=== PATIENT | female | born 1955 | race African-American/Black ===

== ENCOUNTER 2017-05-09 19:37 | Emergency (ER) | payer SELFPAY ==
[~2017-05-09] VITALS: Ht 172.7 cm; Wt 45.5 kg
[~2017-05-09 19:37] MED LIST: ASPI1TAB69 PO; BUPR100CR PO; CYCL5TAB PO; LORA-392 PO; MEGE40TA PO; NITR1SUB3 SL; PERC5TAB12 PO; TAMS5CAP PO; TRAM50TA PO; VARE1PAK3 PO; VENTAER INH
[2017-05-09 19:39] VITALS: BP 207/108; PULSE 95; RESP 16; TEMP 98.4; O2SAT 98
[2017-05-09] MEDS ORDERED: ASPI81CH CHEW (21:13)
[2017-05-09] MEDS ORDERED: LISI10TA3 PO (21:14)
[2017-05-09] MEDS ORDERED: AMLO2.5T PO (21:14)
--- NOTE | 2017-05-09 21:14 | PD ---
HPI Chief Complaint: Flank/Kidney Pain Time Seen by Provider: 21:12 Travel History International Travel<30 days: No Contact w/Intl Traveler<30days: No Traveled to known affect area: No History of Present Illness HPI The patient is a 61 year old female who presents to the [facility] emergency department with a history of kidney stones that she reports have been causing her right flank pain over the last few months that is gradually gotten worse with time. She reports that she has been on tramadol as well as Percocet for the pain, however this seems to cause nausea even if she takes it with something on her stomach. The patient reports that she has seen a urologist regarding this. She reports that she was told that they wanted to do surgery related to a kidney stone on the left, however pain is more prominent on the right. She cannot recall the name of her urologist or her primary care physician. She reports that she does have urinary frequency and urinary urgency. She additionally reports that she's had a fever over the last 2 days with a MAXIMUM TEMPERATURE of 101. On review of systems otherwise she also reports having chest congestion and a cough that has been productive of a clear to white sputum. She reports that the congestion has been getting worse over the last few days. The patient reports that she does have a history of COPD. She reports that she does smoke a half a pack of cigarettes per day. She reports that she has suprapubic pressure on her bladder gets full. Otherwise on review of systems, the patient denies any neck pain, chest pain, shortness of breath, vomiting, diarrhea, or neurologic symptoms. [facility] Past Medical History Narrative Medical The patient's past medical history is significant for hypertension, COPD, tobacco abuse, acid reflux, renal calculi, shingles, herpes. Hx Anticoagulant Therapy: Yes (ASA) Asthma: No Autoimmune Disease: No Anxiety: Yes Depression: Yes Heart Rhythm Problems: No Cancer: No Cardiac Catheterization: No Cardiovascular Problems: Yes (HTN) High Cholesterol: No Chest Pain: Yes (SEEN SEVERAL TIMES FOR REOCCURING CHEST PAIN) Congestive Heart Failure: No COPD: Yes Cerebrovascular Accident: No Diabetes: No Diminished Hearing: No Gastrointestinal Disorders: Yes GERD: Yes Genitourinary: Yes Hiatal Hernia: No Heparin Induced Thrombocytopen: No Hypertension: Yes Immune Disorder: No Implanted Vascular Access Dvce: No Kidney Stones: Yes Musculoskeletal: Yes Neurologic: Yes Psychiatric: Yes Respiratory: Yes (COPD) Immunizations Current: Yes Sleep Apnea: Yes (no cpap) Thyroid Disease: No Ulcer: No Tubal Ligation: Yes Past Surgical History Narrative Surgical The patient's past surgical history is significant for lithotripsy, partial hysterectomy related to a fibroid, left tib-fib repair with chronic left leg pain. Coronary Artery Bypass Graft: No Gynecologic Surgery: Yes (partial hysterectomy) Hysterectomy: Yes Pacemaker: No Other Surgery: Yes (LITHOTRIPSY) Family History Family Myocardial Infarction: No Social History Alcohol Use: No Tobacco Use: Yes (15 cigs a day ) Substance Use: No Allergies-Medications (Allergen,Severity, Reaction): Coded Allergies: Sulfa (Sulfonamide Antibiotics) (Unverified Allergy, Severe, SWELLING, HIVES, 05/09/17) Reported Meds & Prescriptions Reported Meds & Active Scripts Active Percocet (Oxycodone-Acetaminophen) 5-325 mg Tab 1-2 Tab PO Q6H PRN Tramadol (Tramadol HCl) 50 Mg Tab 50 Mg PO Q6H PRN Flomax (Tamsulosin HCl) 0.4 Mg Cap 0.4 Mg PO HS Wellbutrin SR 12 HR (Bupropion HCl) 100 Mg Tab 100 Mg PO Q12HR Nitroglycerin SL (Nitroglycerin) 0.4 Mg Subl 0.4 Mg SL DIRECTED PRN ONE TABLET UNDER THE TONGUE NEEDED FOR CHEST PAIN, MAY REPEAT EVERY FIVE MINUTES FOR A TOTAL OF 3 DOSES OR CALL 911 IF NO RELIEF Ativan (Lorazepam) 0.5 Mg Tab 0.5 Mg PO BID PRN Reported Amlodipine (Amlodipine Besylate) Unknown Strength Tab Unknown Dose PO DAILY Lisinopril 10 Mg Tab 10 Mg PO BID Aspirin 81 Mg Chew 81 Mg CHEW DAILY Ventolin Hfa 18 GM Inh (Albuterol Sulfate) 90 Mcg/Act Aer 1 Puff INH Q4H PRN Megestrol (Megestrol Acetate) 40 Mg Tab 40 Mg PO QID Flexeril (Cyclobenzaprine HCl) 5 Mg Tab 5 Mg PO DAILY Review of Systems Except as stated in HPI: all other systems reviewed are Neg General / Constitutional: Positive: Fever, No: Chills Eyes: No: Visual changes HENT: Positive: Congestion, No: Headaches Cardiovascular: No: Chest Pain or Discomfort, Dyspnea on exertion Respiratory: Positive: Cough, No: Shortness of Breath Gastrointestinal: Positive: Nausea, Abdominal Pain (suprapubic pressure), No: Vomiting, Diarrhea, Hematemesis, Hematochezia, Changes in Bowel Habits, Indigestion, Loss of Appetite Genitourinary: Positive: Urgency, Frequency, Flank Pain (right flank), No: Dysuria Musculoskeletal: Positive: Myalgias, Arthralgias, No: Pain Skin: No Rash Neurologic: No: Weakness, Focal Abnormalities, Change in Mentation, Slurred Speech, Sensory Disturbance Psychiatric: No: Depression Endocrine: No: Polydipsia Hematologic/Lymphatic: No: Easy Bruising Physical Exam Narrative General: The patient is a well-developed well-nourished female in no acute distress. Head and Neck exam: Head is normocephalic atraumatic. Eyes: EOMI, pupils are equal round and reactive to light. Nose: Midline septum with pink mucous membranes Mouth: Dentition unremarkable. Moist mucus membranes. Posterior oropharynx is not erythematous. No tonsillar hypertrophy. Uvula midline. Airway patent. Neck: No palpable lymphadenopathy. No nuchal rigidity. No thyromegaly. Cardiovascular: Regular rate and rhythm without murmurs, gallops, or rubs. No pulse deficit to the extremities simultaneously auscultation and palpation of her radial artery. Lungs: Clear to auscultation bilaterally. No wheezes, rhonchi, or rales. Abdomen: Soft, with reported suprapubic discomfort on palpation, no other tenderness on palpation of the other quadrants of the abdomen. No guarding, rebound, or rigidity. Normal bowel sounds are audible. No tenderness on palpation of McBurney's point. Extremities: No clubbing, cyanosis, or edema. 2+ pulses in all 4 extremities. No calf tenderness on palpation. Back: No spinous process tenderness to palpation. Right-sided CVA tenderness on palpation. Neurologic Exam: Grossly nonfocal. Skin Exam: No rash noted. Intact skin that is warm and dry. Data Data Last Documented VS Vital Signs Date Time Temp Pulse Resp B/P (MAP) Pulse Ox O2 Delivery O2 Flow Rate FiO2 05/09/17 21:26 95 Room Air 05/09/17 19:39 98.4 95 16 Orders Orders Urinalysis - C+S If Indicated (05/09/17 20:53) Electrocardiogram (05/09/17 21:18) Complete Blood Count With Diff (05/09/17 21:18) Comprehensive Metabolic Panel (05/09/17 21:18) Prothrombin Time / Inr (Pt) (05/09/17 21:18) Act Partial Throm Time (Ptt) (05/09/17 21:18) Lipase (05/09/17 21:18) Magnesium (Mg) (05/09/17 21:18) Iv Access Insert/Monitor (05/09/17 21:18) Ecg Monitoring (05/09/17 21:18) Oximetry (05/09/17 21:18) Urine Culture (05/09/17 20:53) Chest, Single Ap (05/09/17 ) Ct Abd/Pel W/O Iv Contrast (05/09/17 22:20) Ketorolac Inj (Toradol Inj) (05/09/17 23:45) Ondansetron Inj (Zofran Inj) (05/09/17 23:45) Sodium Chlorid 0.9% 500 Ml Inj (Ns 500 M (05/09/17 23:45) Labs Laboratory Tests Test 05/09/17 20:53 05/09/17 21:34 Urine Color YELLOW Urine Turbidity HAZY Urine pH 5.5 Urine Specific [place] 1.027 Urine Protein 30 mg/dL Urine Glucose (UA) NEG mg/dL Urine Ketones NEG mg/dL Urine Occult Blood MOD Urine Nitrite NEG Urine Bilirubin NEG Urine Urobilinogen 2.0 MG/DL Urine Leukocyte Esterase SMALL Urine RBC /hpf Urine WBC 30 /hpf Urine Squamous Epithelial Cells 4 /hpf Urine Transitional Epithelial Cells 1 /hpf Urine Calcium Oxalate Crystals MOD /hpf Urine Amorphous Sediment RARE Urine Mucus MANY /lpf Microscopic Urinalysis Comment CULTURE INDICATED White Blood Count 7.3 TH/MM3 Red Blood Count 4.65 MIL/MM3 Hemoglobin 12.7 GM/DL Hematocrit 39.3 % Mean Corpuscular Volume 84.5 FL Mean Corpuscular Hemoglobin 27.4 PG Mean Corpuscular Hemoglobin Concent 32.4 % Red Cell Distribution Width 13.5 % Platelet Count 146 TH/MM3 Mean Platelet Volume 9.0 FL Neutrophils (%) (Auto) 60.9 % Lymphocytes (%) (Auto) 30.3 % Monocytes (%) (Auto) 6.5 % Eosinophils (%) (Auto) 1.9 % Basophils (%) (Auto) 0.4 % Neutrophils # (Auto) 4.5 TH/MM3 Lymphocytes # (Auto) 2.2 TH/MM3 Monocytes # (Auto) 0.5 TH/MM3 Eosinophils # (Auto) 0.1 TH/MM3 Basophils # (Auto) 0.0 TH/MM3 CBC Comment DIFF FINAL Differential Comment Prothrombin Time 10.0 SEC Prothromb Time International Ratio 0.9 RATIO Activated Partial Thromboplast Time 25.6 SEC Blood Urea Nitrogen 23 MG/DL Creatinine 1.07 MG/DL Random Glucose 83 MG/DL Total Protein 7.0 GM/DL Albumin 3.5 GM/DL Calcium Level 8.8 MG/DL Magnesium Level 2.0 MG/DL Alkaline Phosphatase 77 U/L Aspartate Amino Transf (AST/SGOT) 22 U/L Alanine Aminotransferase (ALT/SGPT) 23 U/L Total Bilirubin 0.2 MG/DL Sodium Level 142 MEQ/L Potassium Level 3.9 MEQ/L Chloride Level 108 MEQ/L Carbon Dioxide Level 27.1 MEQ/L Anion Gap 7 MEQ/L Estimat Glomerular Filtration Rate 64 ML/MIN Lipase 153 U/L [facility] Medical Decision Making Medical Screen Exam Complete: Yes Emergency Medical Condition: Yes Medical Record Reviewed: Yes Interpretation(s) Last Impressions Abdomen/Pelvis CT 05/09/17 2220 Signed Impressions: Service Date/Time: Tuesday, May 09, 2017 22:41 - CONCLUSION: 1. Numerous nonobstructing right renal calculi as above. 2. 8mm calculus in distal left ureter chronic appearing left-sided hydronephrosis. 3. Multiple small hepatic cysts. No bowel obstruction. Mild ileus. Selvin Rodriguez MD Chest X-Ray 05/09/17 0000 Signed Impressions: Service Date/Time: Tuesday, May 09, 2017 22:15 - CONCLUSION: No evidence of acute cardiopulmonary disease. Azam Fajardo MD Differential Diagnosis Renal calculi, versus renal colic, versus pyelonephritis, versus lower lobe pneumonia, versus bronchitis, versus COPD exacerbation Narrative Course During the course of the patients emergency department visit, the patients history, examination, and differential diagnosis were reviewed with the patient. The patient had IV access obtained and blood work sent for analysis. The patient was placed on a oil burner with oximetry and blood pressure monitoring. An ECG was done on arrival. The patient's ECG shows a sinus rhythm with a short NM interval, heart rate of 76, QRS duration is 74 ms, QTC 412 ms, LVH criteria are met, no acute ST segment elevation, T waves are inverted in V1, V2. The patient was initially provided Toradol 15 mg IV, normal saline a 500 mL bolus, Zofran 4 mg IV. The patient was given Rocephin 1 g IV to cover for bronchitis, versus UTI. The patients laboratory studies were reviewed and remarkable for white count 7.3 , hemoglobin 12.7, platelets 146 with a normal differential, CMP is remarkable for chloride of 108, BUN 23, creatinine 1.07, lipase 153, PT PTT within normal limits, urinalysis showed moderate occult blood, small leukocyte esterase, innumerable rbc's, 30 wbc's, 4 squamous epithelial cells, moderate calcium oxalate crystals, many mucus, culture indicated. Radiology studies were reviewed and remarkable for a chest x-ray that shows numerous nonobstructing right renal calculi, 8 mm calculus in the distal left ureter chronic appearing left sided hydronephrosis, multiple small hepatic cysts. No bowel obstruction. Mild ileus. Chest x-ray shows no evidence of acute cardiopulmonary disease. The patient will be discharged home to follow-up with the urologist. The patient is given the name of the urologist on-call, with a mandatory follow-up through case management in our system and she reports that she is uninsured. The patient was given a prescription for Ceftin and Phenergan for nausea on her pain medication. The patient is instructed to take her usual pain medication as needed for discomfort. The patient is resting comfortably and feels better, is alert and in no distress. The patients results and examination findings were discussed with the patient. The repeat examination is unremarkable and benign. The history, exam, diagnostic testing, and current condition do not suggest any significant pathology to warrant further testing, continued ED treatment, admission, or surgical evaluation at this point. The vital signs have been stable. The patient does not have uncontrollable pain, intractable vomiting, or other significant symptoms. The patient's condition is stable and appropriate for discharge. The patient will pursue further outpatient evaluation with a primary care physician or other designated or consulting physician as indicated in the discharge instructions. The patient expressed understanding and was agreeable with this plan. Diagnosis Primary Impression: Urolithiasis Qualified Codes: N20.0 - Calculus of kidney Additional Impressions: Bronchitis History of COPD Left ureteral stone Referrals: Avel Ortega MD Primary Care Physician Patient Instructions: Acute Bronchitis (ED), COPD (Chronic Obstructive Pulmonary Disease) (ED), General Instructions, Kidney Stones (ED) Additional Instructions: Continue your usual pain management regimen. Follow-up with the urologist as soon as possible. Continue rescue inhaler use as previously recommended by her primary care physician. Quit smoking. Med/Other Pt SpecificInfo: Prescription(s) given Scripts Promethazine (Phenergan) 25 Mg Tablet 12.5 MG PO Q6H Y for NAUSEA OR VOMITING, #7 TAB 0 Refills Prov: Diana Centeno MD 05/09/17 Cefuroxime (Cefuroxime) 500 Mg Tab 500 MG PO BID for Infection for 7 Days, TAB 0 Refills Prov: Diana Centeno MD 05/09/17 Disposition: 01 DISCHARGE HOME Condition: Stable Diana Centeno MD May 09, 2017 21:13
[2017-05-09 21:26] VITALS: O2SAT 95
[2017-05-09 21:27] LABS: BLOOD, URINE MOD (NEG); CALCIUM OXALATE CRYSTALS,URINE MOD /hpf; COMMENT (UR) CULTURE INDICATED; CULTURE IF INDICATED CULTURE INDICATED; GLUCOSE,URINE NEG (NEG); KETONE, URINE NEG (NEG); MUCUS URINE MANY /lpf (OCC); NITRITE,URINE NEG (NEG); PH, URINE 5.5 (5.0-8.5); SQUAMOUS EPITHELIAL CELL URINE 4 /hpf (0-5); TRANSITIONAL EPI CELLS, URINE 1 /hpf; URINE COLOR YELLOW (YELLW/STRAW)
[2017-05-09 22:13] LABS: APTT (PATIENT) 25.6 SEC (24.3-30.1); AUTOMATED NEUTROPHIL # 4.5 TH/MM3 (1.8-7.7); BASOPHIL % 0.4 % (0.0-2.0); EOSINOPHIL # 0.1 TH/MM3 (0-0.4); EOSINOPHIL % 1.9 % (0.0-4.0); HEMATOCRIT 39.3 % (35.0-46.0); HEMO FLAGS DIFF FINAL; INTERNATIONAL NORMALIZED RATIO 0.9 RATIO; LYMPH % 30.3 % (9.0-44.0); LYMPHOCYTE # 2.2 TH/MM3 (1.0-4.8); MEAN CELL VOLUME 84.5 FL (80.0-100.0); MEAN CORPUSCULAR HEMOGLOBIN 27.4 PG (27.0-34.0); MEAN CORPUSCULAR HGB CONC 32.4 % (32.0-36.0); MONO % 6.5 % (0.0-8.0); NEUT % 60.9 % (16.0-70.0); PLATELET COUNT 146 TH/MM3 (150-450); RED BLOOD COUNT 4.65 MIL/MM3 (4.00-5.30); RED CELL DISTRIBUTION WIDTH 13.5 % (11.6-17.2); WHITE BLOOD COUNT 7.3 TH/MM3 (4.0-11.0)
--- NOTE | 2017-05-09 22:37 | RADRPT ---
EXAM DATE/TIME: 05/09/2017 22:15 [facility] COMPARISON: CHEST SINGLE AP, December 23, 2015, 20:35. INDICATIONS : Cough and chronic chest pain. MEDICAL HISTORY : Hypertension. Chronic obstructive pulmonary disease. SURGICAL HISTORY : None. ENCOUNTER: Initial ACUITY: 7 - 11 months PAIN SCORE: 6/10 LOCATION: Left chest FINDINGS: A single view of the chest demonstrates the lungs to be symmetrically aerated without evidence of mas s, infiltrate or effusion. The cardiomediastinal contours are unremarkable. Osseous structures are intact. CONCLUSION: No evidence of acute cardiopulmonary disease. Azam Fajardo MD on May 09, 2017 at 22:36 Board Certified Radiologist. This report was verified electronically.
[2017-05-09 22:43] LABS: ALT (GPT) 23 U/L (10-53)
[2017-05-09 22:44] LABS: ANION GAP 7 MEQ/L (5-15); AST (GOT) 22 U/L (15-37); BICARBONATE 27.1 MEQ/L (21.0-32.0); BLOOD UREA NITROGEN 23 MG/DL (7-18); CHLORIDE 108 MEQ/L (98-107); GLOMERULAR FILTRATION RATE 64 ML/MIN (>89); POTASSIUM 3.9 MEQ/L (3.5-5.1); SODIUM (NA) 142 MEQ/L (136-145)
[2017-05-09 22:45] LABS: ALKALINE PHOSPHATASE 77 U/L (45-117); TOTAL BILIRUBIN ADULT 0.2 MG/DL (0.2-1.0)
--- NOTE | 2017-05-09 23:14 | RADRPT ---
EXAM DATE/TIME: 05/09/2017 22:41 [facility] COMPARISON: No previous studies available for comparison. INDICATIONS : Right flank pain. ORAL CONTRAST: No oral contrast ingested. RADIATION DOSE: 13.68 CTDIvol (mGy) MEDICAL HISTORY : Hypertension. Chronic obstructive pulmonary disease. Renal calculi. SURGICAL HISTORY : Tubal ligation. Hysterectomy. ENCOUNTER: Initial ACUITY: 1 day PAIN SCALE: 5/10 LOCATION: Right flank TECHNIQUE: Volumetric scanning of the abdomen and pelvis was performed. Using automated exposure control and ad justment of the mA and/or kV according to patient size, radiation dose was kept as low as reasonably achievable to obtain optimal diagnostic quality images. DICOM format image data is available electro nically for review and comparison. FINDINGS: Lung bases are clear. Multiple small hepatic cysts. Spleen unremarkable. There are numerous calculi i n the right kidney predominantly in the lower pole ranging in size from about 5 mm x 10 mm in the low er pole in the right with several other calculi in the 4-5 mm range. Punctate calculi present mid and upper pole right kidney. No right-sided hydronephrosis or evidence for obstructive uropathy. There is moderate left-sided hydronephrosis with a dilated left ureter above 8 mm calculus in the dis reza left ureter. Hydronephrosis on the left side is probably chronic. There is also cystic change in both kidneys. No free fluid. No bowel obstruction. No free hand. Bladder is empty. No acute bony abnormalities. CONCLUSION: 1. Numerous nonobstructing right renal calculi as above. 2. 8mm calculus in distal left ureter chronic appearing left-sided hydronephrosis. 3. Multiple small hepatic cysts. No bowel obstruction. Mild ileus. Selvin Rodriguez MD on May 09, 2017 at 23:03 Board Certified Radiologist. This report was verified electronically.
[2017-05-09] MEDS ORDERED: PROM25TA10 PO (23:42)
[2017-05-09] MEDS ORDERED: CEFU1TAB20 PO (23:42)
[2017-05-09] MEDS ORDERED: KETOROLAC TROMETHAMINE 30 MG/ML (IVP) VIAL IV PUSH ONE (23:45)
[2017-05-09] MEDS ORDERED: ONDANSETRON HCL 4 MG/2 ML VIAL IV PUSH ONE (23:45)
[2017-05-09] MEDS ORDERED: SODIUM CHLORID 0.9% 500 ML INJ 500 ML IV ONE (23:45)
[2017-05-10] MEDS ORDERED: cefTRIAXone INJ 1,000 MG in SODIUM CHLORIDE 0.9% INJ 100 ML IV ONE ×2
--- NOTE | 2017-05-10 14:04 | EKG ---
Date Performed: 05/09/2017 Time Performed: 21:39:34 PTAGE: 61 years EKG: Sinus rhythm WITH SHORT MO INTERVAL VOLTAGE CRITERIA FOR LVH ABNORMAL ECG Compared to prior tracing no significan t change PREVIOUS TRACING : 12/25/2015 04.44 DOCTOR: Gabriela Calvillo Interpretating Date/Time 05/10/2017 13:58:32
[2017-06-17] MEDS ORDERED: AMLO10TA2 PO (14:40)
[2017-06-20] MEDS ORDERED: IBUP800T23 PO (06:43)
== END 2017-05-10 00:35 | disposition home or self-care (01) ==
LOC: NEPE 19:37
DX: N13.2 Hydronephrosis with renal and ureteral calculous obstruction (principal); J40 Bronchitis, not specified as acute or chronic; R94.31 Abnormal electrocardiogram [ECG] [EKG]; I10 Essential (primary) hypertension; R07.9 Chest pain, unspecified; J44.9 Chronic obstructive pulmonary disease, unspecified; Z72.0 Tobacco use
CPT/HCPCS: 71010; 74176; 80053; 81001; 83690; 83735; 85025; 85610; 85730; 87086; 93005; 96365; 96375; 99285; J0696; J1885; J2405; J7040

== ENCOUNTER 2017-06-20 08:38 | Emergency (ER) | payer SELFPAY ==
[~2017-06-20] VITALS: Ht 170.2 cm; Wt 44.6 kg
[~2017-06-20 08:38] MED LIST changes: -ACETAMINOPHEN 1000 MG/100 ML 100 ML IV ONE; -CHLORHEXIDINE GLUCONATE 2 % 1 PACK (2 CLOTHS) TOPICAL PRN; -FUROSEMIDE 40 MG/4 ML VIAL ONE; -GENTAMICIN SULFATE 80 MG/2 ML VIAL ONE; -INSULIN HUMAN REGULAR 1,000 UNITS/10 ML VIAL SQ PRN; -LACTATED RINGER'S 1000 ML IV PRN; -METOPROLOL TARTRATE 25 MG TAB PO PRN; -POVIDONE IODINE 5% (ANTISEPSIS KIT) 4 APPLICATIONS EACH NARE PRN; -SODIUM CHLORID 0.9% 500 ML IV PRN; -ceFAZolin 1,000 MG/NS 100 ML IV SCH
[2017-06-20 08:44] VITALS: BP 206/130; PULSE 107; PULSE 86; RESP 16; RESP 22; TEMP 98.5; O2SAT 100
[2017-06-20 08:59] VITALS: BP 167/110; PULSE 77; RESP 16; O2SAT 98
[2017-06-20] MEDS ORDERED: ASPIRIN 81 MG CHEW TAB PO ONE (09:30)
[2017-06-20] MEDS ORDERED: NITROGLYCERIN 0.4 MG SL 25 TABS/BTL SL ONE (09:30)
[2017-06-20] MEDS ORDERED: SODIUM CHLORIDE 0.9% FLUSH 10 ML FLUSH IVF PRN (09:30)
--- NOTE | 2017-06-20 09:31 | PD ---
HPI Chief Complaint: Cardiac Complaint Time Seen by Provider: 08:49 Travel History International Travel<30 days: No Contact w/Intl Traveler<30days: No Traveled to known affect area: No History of Present Illness HPI The patient is a 61-year-old female who presents to the emergency department for elevated blood pressure. The patient was scheduled to undergo lithotripsy and pyelogram by Dr. Hinton earlier today, however, the surgery was postponed secondary to elevated blood pressure. The patient does have a history of hypertension and was previously on lisinopril 10 mg twice a day and amlodipine 10 mg once a day. The patient was taken off of her medications by her primary physician, Dr. Velazquez, after her blood pressure started to normalize. However, over the last week she does note intermittent headaches, chest pain, shortness of breath, generalized fatigue. She does complain of some left-sided chest pain which she rates 2/10, dull, achy, and worse with palpation. She denies any acute shortness of breath, nausea, vomiting, or diaphoresis. Symptoms are mild to moderate, possibly exacerbated by history of hypertension, and there are no current alleviating factors. PFSH Past Medical History Hx Anticoagulant Therapy: Yes (ASA) Asthma: No Autoimmune Disease: No Anxiety: Yes Depression: Yes Heart Rhythm Problems: No Cancer: No Cardiac Catheterization: No Cardiovascular Problems: Yes (HTN) High Cholesterol: No Chest Pain: Yes (SEEN SEVERAL TIMES FOR REOCCURING CHEST PAIN) Congestive Heart Failure: No COPD: Yes Cerebrovascular Accident: No Diabetes: No Diminished Hearing: No Endocrine: No Gastrointestinal Disorders: Yes GERD: Yes Genitourinary: Yes (KIDNEY STONES) Hepatitis: No Hiatal Hernia: No Heparin Induced Thrombocytopen: No Hypertension: Yes Immune Disorder: No Implanted Vascular Access Dvce: No Kidney Stones: Yes Musculoskeletal: Yes Neurologic: Yes Psychiatric: Yes Respiratory: Yes (COPD) Immunizations Current: Yes Sleep Apnea: Yes (no cpap) Thyroid Disease: No Ulcer: No ?: Not Tubal Ligation: Yes Past Surgical History Abdominal Surgery: No AICD: No Body Medical Devices: oni, screws l lower leg Cardiac Surgery: No Coronary Artery Bypass Graft: No Ear Surgery: No Endocrine Surgery: No Eye Surgery: No Genitourinary Surgery: No Gynecologic Surgery: Yes (partial hysterectomy) Hysterectomy: Yes Joint Replacement: No Oral Surgery: No Pacemaker: No Thoracic Surgery: No Other Surgery: Yes (LITHOTRIPSY) Social History Alcohol Use: No Tobacco Use: Yes (15 cigs a day ) Substance Use: No Allergies-Medications (Allergen,Severity, Reaction): Coded Allergies: Sulfa (Sulfonamide Antibiotics) (Verified Allergy, Severe, SWELLING, HIVES , 06/20/17) Reported Meds & Prescriptions Reported Meds & Active Scripts Active Percocet (Oxycodone-Acetaminophen) 5-325 mg Tab 1-2 Tab PO Q6H PRN Tramadol (Tramadol HCl) 50 Mg Tab 50 Mg PO Q6H PRN Nitroglycerin SL (Nitroglycerin) 0.4 Mg Subl 0.4 Mg SL DIRECTED PRN ONE TABLET UNDER THE TONGUE NEEDED FOR CHEST PAIN, MAY REPEAT EVERY FIVE MINUTES FOR A TOTAL OF 3 DOSES OR CALL 911 IF NO RELIEF Ativan (Lorazepam) 0.5 Mg Tab 0.5 Mg PO BID PRN Reported Ibuprofen 800 Mg Tab 800 Mg PO Q6HR PRN Aspirin 81 Mg Chew 81 Mg CHEW DAILY Ventolin Hfa 18 GM Inh (Albuterol Sulfate) 90 Mcg/Act Aer 1 Puff INH Q4H PRN Review of Systems Except as stated in HPI: all other systems reviewed are Neg HENT: Positive: Lightheadedness Cardiovascular: Positive: Chest Pain or Discomfort Respiratory: Positive: Shortness of Breath Gastrointestinal: No: Nausea, Vomiting, Abdominal Pain Musculoskeletal: Positive: Weakness Neurologic: No: Focal Abnormalities Physical Exam Narrative GENERAL: Awake, alert, pleasant 61 year-old female who appears her stated age and is in no acute respiratory distress. SKIN: Focused skin assessment warm/dry. HEAD: Atraumatic. Normocephalic. EYES: No injection or drainage. ENT: No nasal bleeding or discharge. Mucous membranes pink and moist. NECK: Trachea midline. No JVD. CARDIOVASCULAR: Regular rate and rhythm. No murmur appreciated. Palpation of the left chest wall reproduces symptoms. RESPIRATORY: No accessory muscle use. Clear to auscultation. Breath sounds equal bilaterally. GASTROINTESTINAL: Abdomen soft, non-tender, nondistended. No rebound tenderness. MUSCULOSKELETAL: No obvious deformities. No clubbing. No cyanosis. No edema. NEUROLOGICAL: Awake and alert. No obvious cranial nerve deficits. Motor grossly within normal limits. Normal speech. Nonfocal. Oriented 4. Follows commands without difficulty. PSYCHIATRIC: Appropriate mood and affect; insight and judgment normal. Data Data Last Documented VS Vital Signs Date Time Temp Pulse Resp B/P (MAP) Pulse Ox O2 Delivery O2 Flow Rate FiO2 06/20/17 09:54 80 15 162/98 (119) 99 Nasal Cannula 2.00 06/20/17 08:44 98.5 Orders Orders Electrocardiogram (06/20/17 09:16) Ckmb (Isoenzyme) Profile (06/20/17 09:16) Complete Blood Count With Diff (06/20/17 09:16) Comprehensive Metabolic Panel (06/20/17 09:16) Magnesium (Mg) (06/20/17 09:16) Prothrombin Time / Inr (Pt) (06/20/17 09:16) Act Partial Throm Time (Ptt) (06/20/17 09:16) Troponin I (06/20/17 09:16) Chest, Single Ap (06/20/17 09:16) Ecg Monitoring (06/20/17 09:16) Bilateral Bp Monitoring (06/20/17 09:16) Iv Access Insert/Monitor (06/20/17 09:16) Oximetry (06/20/17 09:16) Oxygen Administration (06/20/17 09:16) Aspirin Chew (Aspirin Chew) (06/20/17 09:30) Sodium Chloride 0.9% Flush (Ns Flush) (06/20/17 09:30) Nitroglycerin Sl (Nitrostat Sl) (06/20/17 09:30) Ed Discharge Order (06/20/17 11:27) Lisinopril (Prinivil) (06/20/17 11:30) Labs Laboratory Tests Test 06/20/17 09:20 White Blood Count 7.8 TH/MM3 Red Blood Count 4.63 MIL/MM3 Hemoglobin 12.5 GM/DL Hematocrit 39.0 % Mean Corpuscular Volume 84.2 FL Mean Corpuscular Hemoglobin 26.9 PG Mean Corpuscular Hemoglobin Concent 32.0 % Red Cell Distribution Width 13.2 % Platelet Count 142 TH/MM3 Mean Platelet Volume 8.5 FL Neutrophils (%) (Auto) 78.0 % Lymphocytes (%) (Auto) 16.5 % Monocytes (%) (Auto) 4.2 % Eosinophils (%) (Auto) 0.8 % Basophils (%) (Auto) 0.5 % Neutrophils # (Auto) 6.1 TH/MM3 Lymphocytes # (Auto) 1.3 TH/MM3 Monocytes # (Auto) 0.3 TH/MM3 Eosinophils # (Auto) 0.1 TH/MM3 Basophils # (Auto) 0.0 TH/MM3 CBC Comment DIFF FINAL Differential Comment Prothrombin Time 10.4 SEC Prothromb Time International Ratio 0.9 RATIO Activated Partial Thromboplast Time 24.5 SEC Blood Urea Nitrogen 20 MG/DL Creatinine 0.85 MG/DL Random Glucose 89 MG/DL Total Protein 7.0 GM/DL Albumin 3.4 GM/DL Calcium Level 8.8 MG/DL Magnesium Level 1.8 MG/DL Alkaline Phosphatase 72 U/L Aspartate Amino Transf (AST/SGOT) 16 U/L Alanine Aminotransferase (ALT/SGPT) 24 U/L Total Bilirubin 0.4 MG/DL Sodium Level 140 MEQ/L Potassium Level 3.6 MEQ/L Chloride Level 107 MEQ/L Carbon Dioxide Level 28.3 MEQ/L Anion Gap 5 MEQ/L Estimat Glomerular Filtration Rate 83 ML/MIN Total Creatine Kinase 57 U/L Troponin I LESS THAN 0.02 NG/ML MDM Medical Decision Making Medical Screen Exam Complete: Yes Emergency Medical Condition: Yes Medical Record Reviewed: Yes Interpretation(s) EKG reveals normal sinus rhythm with a rate of 61. Short CA interval of 109 ms. No ischemic changes noted. Last Impressions Chest X-Ray 06/20/17 0916 Signed Impressions: Service Date/Time: Tuesday, June 20, 2017 09:28 - CONCLUSION: The lungs are clear. Sabino Khan MD Laboratory Tests Test 06/20/17 09:20 White Blood Count 7.8 TH/MM3 Red Blood Count 4.63 MIL/MM3 Hemoglobin 12.5 GM/DL Hematocrit 39.0 % Mean Corpuscular Volume 84.2 FL Mean Corpuscular Hemoglobin 26.9 PG Mean Corpuscular Hemoglobin Concent 32.0 % Red Cell Distribution Width 13.2 % Platelet Count 142 TH/MM3 Mean Platelet Volume 8.5 FL Neutrophils (%) (Auto) 78.0 % Lymphocytes (%) (Auto) 16.5 % Monocytes (%) (Auto) 4.2 % Eosinophils (%) (Auto) 0.8 % Basophils (%) (Auto) 0.5 % Neutrophils # (Auto) 6.1 TH/MM3 Lymphocytes # (Auto) 1.3 TH/MM3 Monocytes # (Auto) 0.3 TH/MM3 Eosinophils # (Auto) 0.1 TH/MM3 Basophils # (Auto) 0.0 TH/MM3 CBC Comment DIFF FINAL Differential Comment Prothrombin Time 10.4 SEC Prothromb Time International Ratio 0.9 RATIO Activated Partial Thromboplast Time 24.5 SEC Blood Urea Nitrogen 20 MG/DL Creatinine 0.85 MG/DL Random Glucose 89 MG/DL Total Protein 7.0 GM/DL Albumin 3.4 GM/DL Calcium Level 8.8 MG/DL Magnesium Level 1.8 MG/DL Alkaline Phosphatase 72 U/L Aspartate Amino Transf (AST/SGOT) 16 U/L Alanine Aminotransferase (ALT/SGPT) 24 U/L Total Bilirubin 0.4 MG/DL Sodium Level 140 MEQ/L Potassium Level 3.6 MEQ/L Chloride Level 107 MEQ/L Carbon Dioxide Level 28.3 MEQ/L Anion Gap 5 MEQ/L Estimat Glomerular Filtration Rate 83 ML/MIN Total Creatine Kinase 57 U/L Troponin I LESS THAN 0.02 NG/ML Differential Diagnosis Differential diagnosis includes hypertension, hypertensive urgency, hypertensive emergency, acute coronary syndrome, bronchitis, pneumonia, pulmonary embolism. Narrative Course IV was established, labs are drawn and sent, and the patient was placed on cardiac telemetry monitoring and continuous pulse oximetry monitoring. Patient was administered aspirin and nitroglycerin sublingual. Chest x-ray was obtained. EKG was ordered and interpreted. Chest x-rays unremarkable. Troponin and CPK are within normal limits. I reviewed the patient's EMR, she had a nuclear medicine myocardial perfusion scan performed December 25, 2015 which revealed an ejection fraction of 61%, was considered low risk. The patient's chest pain is reproducible with palpation, blood pressure is elevated and patient will need to go back on antihypertensives. The patient's troponin is unremarkable. Patient is currently asymptomatic, blood pressure was still noted to be 159/101. The patient will be placed back on antihypertensives, she was administered a dose of lisinopril 10 mg in emergency department and will be placed on lisinopril 10 mg daily. She is advised to return if symptoms worsen or progress and the follow-up with her primary physician, Dr. Velazquez. Diagnosis Primary Impression: Hypertension Qualified Codes: I10 - Essential (primary) hypertension Additional Impression: Atypical chest pain Patient Instructions: General Instructions Additional Instructions: Medications as directed. Follow-up with your primary physician. Return if symptoms worsen or progress. Please provide a patient a copy of her lab results and x-ray results at discharge. Med/Other Pt SpecificInfo: Prescription(s) given Scripts Lisinopril (Lisinopril) 10 Mg Tab 10 MG PO DAILY, #30 TAB 0 Refills Prov: Candido Mike MD 06/20/17 Disposition: 01 DISCHARGE HOME Condition: Stable Candido Mike MD Jun 20, 2017 09:31
[2017-06-20 09:45] LABS: AUTOMATED NEUTROPHIL # 6.1 TH/MM3 (1.8-7.7); BASOPHIL % 0.5 % (0.0-2.0); EOSINOPHIL # 0.1 TH/MM3 (0-0.4); EOSINOPHIL % 0.8 % (0.0-4.0); HEMO FLAGS DIFF FINAL; LYMPH % 16.5 % (9.0-44.0); LYMPHOCYTE # 1.3 TH/MM3 (1.0-4.8); MEAN CELL VOLUME 84.2 FL (80.0-100.0); MEAN CORPUSCULAR HEMOGLOBIN 26.9 PG (27.0-34.0); MONO % 4.2 % (0.0-8.0); PLATELET COUNT 142 TH/MM3 (150-450); RED BLOOD COUNT 4.63 MIL/MM3 (4.00-5.30); RED CELL DISTRIBUTION WIDTH 13.2 % (11.6-17.2); WHITE BLOOD COUNT 7.8 TH/MM3 (4.0-11.0)
[2017-06-20 09:46] VITALS: BP_SYST 181; BP_SYST 189; BP_SYST 192; BP_DIAS 101; BP_DIAS 109; BP_DIAS 111; PULSE 65; PULSE 78; RESP 15; O2SAT 98; O2SAT 99
[2017-06-20 09:54] VITALS: BP 162/98; PULSE 80; RESP 15; O2SAT 99
[2017-06-20 09:58] LABS: APTT (PATIENT) 24.5 SEC (24.3-30.1); INTERNATIONAL NORMALIZED RATIO 0.9 RATIO; PROTHROMBIN TIME - PATIENT 10.4 SEC (9.8-11.6)
--- NOTE | 2017-06-20 10:03 | RADRPT ---
EXAM DATE/TIME: 06/20/2017 09:28 [facility] COMPARISON: CHEST SINGLE AP, May 09, 2017, 22:15. INDICATIONS : Chest pain. MEDICAL HISTORY : Chronic obstructive pulmonary disease. kidney stones, high blood pressure SURGICAL HISTORY : None. ENCOUNTER: Initial ACUITY: 2 weeks PAIN SCORE: 2/10 LOCATION: Bilateral chest FINDINGS: A single view of the chest demonstrates the lungs to be symmetrically hyperaerated without evidence o f mass, infiltrate or effusion. The cardiomediastinal contours are unremarkable. Osseous structures are intact. CONCLUSION: The lungs are clear. Sabino Khan MD on June 20, 2017 at 10:01 Board Certified Radiologist. This report was verified electronically.
[2017-06-20 10:09] LABS: ALT (GPT) 24 U/L (10-53); ANION GAP 5 MEQ/L (5-15); AST (GOT) 16 U/L (15-37); BICARBONATE 28.3 MEQ/L (21.0-32.0); BLOOD UREA NITROGEN 20 MG/DL (7-18); CHLORIDE 107 MEQ/L (98-107); GLOMERULAR FILTRATION RATE 83 ML/MIN (>89); MAGNESIUM 1.8 MG/DL (1.5-2.5); POTASSIUM 3.6 MEQ/L (3.5-5.1); SODIUM (NA) 140 MEQ/L (136-145)
[2017-06-20 10:14] LABS: ALKALINE PHOSPHATASE 72 U/L (45-117); TOTAL BILIRUBIN ADULT 0.4 MG/DL (0.2-1.0)
[2017-06-20 10:16] LABS: CREATINE KINASE 57 U/L (26-192)
[2017-06-20] MEDS ORDERED: LISI10TA3 PO (11:30)
[2017-06-20] MEDS ORDERED: LISINOPRIL 10 MG TAB PO ONE (11:30)
[2017-06-20 11:45] VITALS: BP 162/103
--- NOTE | 2017-06-20 18:08 | EKG ---
Date Performed: 06/20/2017 Time Performed: 09:26:29 PTAGE: 61 years EKG: Sinus rhythm WITH SHORT VT INTERVAL BORDERLINE ECG Compared to prior tracing no significant change PREVIOUS TRACING : 05/09/2017 21.39 DOCTOR: Jasvir Conde Interpretating Date/Time 06/20/2017 18:06:56
== END 2017-06-20 11:58 | disposition home or self-care (01) ==
LOC: NEPE 08:38
DX: I10 Essential (primary) hypertension (principal); R07.89 Other chest pain; R94.31 Abnormal electrocardiogram [ECG] [EKG]; R51 Headache; R06.02 Shortness of breath; Z79.01 Long term (current) use of anticoagulants; J44.9 Chronic obstructive pulmonary disease, unspecified; Z72.0 Tobacco use
CPT/HCPCS: 71010; 80053; 82550; 83735; 84484; 85025; 85610; 85730; 93005

== ENCOUNTER → 2017-06-20 | Day surgery (SDC) | payer SELFPAY ==
[~2017-06-20] MED LIST changes: +ACETAMINOPHEN 1000 MG/100 ML 100 ML IV ONE; +AMLO10TA2 PO; -ASPI1TAB69 PO; +ASPI81CH CHEW; +CEFU1TAB20 PO; +CHLORHEXIDINE GLUCONATE 2 % 1 PACK (2 CLOTHS) TOPICAL PRN; +FUROSEMIDE 40 MG/4 ML VIAL ONE; +GENTAMICIN SULFATE 80 MG/2 ML VIAL ONE; +IBUP800T23 PO; +INSULIN HUMAN REGULAR 1,000 UNITS/10 ML VIAL SQ PRN; +LACTATED RINGER'S 1000 ML IV PRN; +LISI10TA3 PO; +METOPROLOL TARTRATE 25 MG TAB PO PRN; +POVIDONE IODINE 5% (ANTISEPSIS KIT) 4 APPLICATIONS EACH NARE PRN; +PROM25TA10 PO; +SODIUM CHLORID 0.9% 500 ML IV PRN; -VARE1PAK3 PO; +ceFAZolin 1,000 MG/NS 100 ML IV SCH
[2017-06-20 06:32] VITALS: BP 209/129; PULSE 69; RESP 20; TEMP 97.8; O2SAT 99
[2017-06-20 06:54] LABS: AUTOMATED NEUTROPHIL # 3.8 TH/MM3 (1.8-7.7); BASOPHIL % 0.4 % (0.0-2.0); EOSINOPHIL # 0.1 TH/MM3 (0-0.4); EOSINOPHIL % 2.2 % (0.0-4.0); HEMATOCRIT 40.3 % (35.0-46.0); HEMO FLAGS DIFF FINAL; LYMPH % 32.5 % (9.0-44.0); LYMPHOCYTE # 2.1 TH/MM3 (1.0-4.8); MEAN CELL VOLUME 83.9 FL (80.0-100.0); MEAN CORPUSCULAR HGB CONC 32.1 % (32.0-36.0); MONO % 6.7 % (0.0-8.0); NEUT % 58.2 % (16.0-70.0); PLATELET COUNT 156 TH/MM3 (150-450); RED BLOOD COUNT 4.81 MIL/MM3 (4.00-5.30); RED CELL DISTRIBUTION WIDTH 13.2 % (11.6-17.2); WHITE BLOOD COUNT 6.5 TH/MM3 (4.0-11.0)
--- NOTE | 2017-06-20 09:01 | HHI.PR ---
Subjective Patient symptoms today Presents for elective surgery today Denies pain Blood pressure noted to be markedly elevated Objective Vital Signs Vital Signs Date Time Temp Pulse Resp B/P (MAP) Pulse Ox O2 Delivery O2 Flow Rate FiO2 06/20/17 06:32 97.8 69 20 209/129 (155) 99 Result Diagram: 06/20/17629 Objective Remarks Abdomen soft, nondistended, nontender No CVA tenderness Extremities well-perfused Medications and IVs Current Medications Medications (Trade) Dose Ordered Sig/Irma Route Start Time Stop Time Status Last Admin Lactated Ringer's 1,000 ml @ 30 mls/hr Q24H PRN IV 06/20/17 06:45 06/23/17 06:44 06/20/17 06:32 Sodium Chloride 500 ml @ 30 mls/hr [id number] PRN IV 06/20/17 06:45 06/23/17 06:44 (Lopressor) 25 mg PROCUREMENT MANAGER PRN PO 06/20/17 06:45 06/23/17 06:44 (Betadine 5% Antisepsis Kit) 1 applic PROCUREMENT MANAGER PRN EACH NARE 06/20/17 06:45 06/23/17 06:44 06/20/17 06:40 (Chlorhexidine 2% Cloth) 3 pack PROCUREMENT MANAGER PRN TOPICAL 06/20/17 06:45 06/23/17 06:44 06/20/17 06:20 (NovoLIN R INJ) See Protocol Table ... PROCUREMENT MANAGER PRN SQ 06/20/17 06:45 06/23/17 06:44 Cefazolin Sodium 1000 mg/Sodium Chloride 100 ml @ 200 mls/hr PROCUREMENT MANAGER IV 06/20/17 06:45 06/21/17 06:44 Assessment and Plan Assessment and Plan Urologic impression: #1 presents for elective surgery today to include bilateral retrograde pyelogram studies and left ureteroscopy #2 markedly elevated blood pressure Plan: #1 we'll cancel today's elective surgery #2 transfer patient to emergency room for evaluation of hypertension Terry Hinton MD Jun 20, 2017 09:01
== END | disposition home or self-care (01) ==
LOC: HSDC 05:56
PROVIDERS: ATTEND Urology
DX: N20.0 Calculus of kidney (principal); Z53.9 Procedure and treatment not carried out, unspecified reason
CPT/HCPCS: 85025; 99211; J0131; J7120; G0463; J1580; J1940

== ENCOUNTER 2017-09-07 12:57 | Emergency (ER) | payer SELFPAY ==
[~2017-09-07] VITALS: Ht 170.2 cm; Wt 44.5 kg
[~2017-09-07 12:57] MED LIST changes: -AMLO10TA2 PO; +ASPI-516 CHEW; -ASPI81CH CHEW; -BUPR100CR PO; -CEFU1TAB20 PO; -CYCL5TAB PO; +IBUP1TAB7 PO; -IBUP800T23 PO; -MEGE40TA PO; -PROM25TA10 PO; -TAMS5CAP PO
[2017-09-07 12:58] VITALS: BP 136/89; PULSE 90; RESP 18; TEMP 98.2; O2SAT 98
--- NOTE | 2017-09-07 14:43 | RADRPT ---
EXAM DATE/TIME: 09/07/2017 13:33 [facility] COMPARISON: No previous studies available for comparison. INDICATIONS : Chest pain. MEDICAL HISTORY : Hypertension. Chronic obstructive pulmonary disease. Renal calculi. SURGICAL HISTORY : Tubal ligation. Hysterectomy. ENCOUNTER: Initial ACUITY: 1 week PAIN SCORE: 6/10 LOCATION: Bilateral chest FINDINGS: PA and lateral views of the chest demonstrate the lungs to be symmetrically aerated without evidence of mass, infiltrate or effusion. The cardiomediastinal contours are unremarkable. Osseous structure s are intact. CONCLUSION: 1. No acute cardiopulmonary disease. Sergo Santamaria MD on September 07, 2017 at 14:40 Board Certified Radiologist. This report was verified electronically.
[2017-09-07 14:52] LABS: AUTOMATED NEUTROPHIL # 3.5 TH/MM3 (1.8-7.7); BASOPHIL % 0.2 % (0.0-2.0); EOSINOPHIL # 0.1 TH/MM3 (0-0.4); EOSINOPHIL % 1.4 % (0.0-4.0); HEMATOCRIT 37.5 % (35.0-46.0); HEMOGLOBIN 12.1 GM/DL (11.6-15.3); LYMPH % 31.5 % (9.0-44.0); LYMPHOCYTE # 1.8 TH/MM3 (1.0-4.8); MEAN CELL VOLUME 84.7 FL (80.0-100.0); MEAN CORPUSCULAR HEMOGLOBIN 27.3 PG (27.0-34.0); MEAN CORPUSCULAR HGB CONC 32.2 % (32.0-36.0); MEAN PLATELET VOLUME 8.7 FL (7.0-11.0); MONO % 5.9 % (0.0-8.0); MONOCYTE # 0.3 TH/MM3 (0-0.9); PLATELET COUNT 161 TH/MM3 (150-450); RED BLOOD COUNT 4.42 MIL/MM3 (4.00-5.30); RED CELL DISTRIBUTION WIDTH 13.3 % (11.6-17.2); WHITE BLOOD COUNT 5.8 TH/MM3 (4.0-11.0)
[2017-09-07 15:04] LABS: BACTERIA, URINE RARE /hpf; BILIRUBIN, URINE NEG (NEG); BLOOD, URINE MOD (NEG); GLUCOSE,URINE NEG (NEG); KETONE, URINE NEG (NEG); MUCUS URINE FEW /lpf (OCC); NITRITE,URINE NEG (NEG); PH, URINE 6.5 (5.0-8.5); SQUAMOUS EPITHELIAL CELL URINE 3 /hpf (0-5); URINE COLOR YELLOW (YELLW/STRAW); URINE LEUKOCYTE ESTERASE SMALL (NEG)
[2017-09-07 15:13] LABS: ALBUMIN 3.6 GM/DL (3.4-5.0); ALT (GPT) 22 U/L (10-53); AST (GOT) 18 U/L (15-37); BLOOD UREA NITROGEN 23 MG/DL (7-18); CALCIUM 8.8 MG/DL (8.5-10.1); CHLORIDE 108 MEQ/L (98-107); CREATININE 0.84 MG/DL (0.50-1.00); GLOMERULAR FILTRATION RATE 84 ML/MIN (>89); GLUCOSE,RANDOM 107 MG/DL (74-106); SODIUM (NA) 142 MEQ/L (136-145)
[2017-09-07 15:15] LABS: ALKALINE PHOSPHATASE 74 U/L (45-117); TOTAL BILIRUBIN ADULT 0.2 MG/DL (0.2-1.0); TOTAL PROTEIN 7.1 GM/DL (6.4-8.2)
[2017-09-07] MEDS ORDERED: MACR100C2 PO (15:58)
[2017-09-07] MEDS ORDERED: PRED20 PO (15:58)
--- NOTE | 2017-09-07 15:59 | PD ---
HPI Chief Complaint: Medical Clearance Time Seen by Provider: 15:47 Travel History International Travel<30 days: No Contact w/Intl Traveler<30days: No Traveled to known affect area: No History of Present Illness HPI 62-year-old female came to the emergency room with history of cough, shortness of breath for past 3-4 days. Patient is a chronic smoker. Vital signs were stable when she arrived. She had a workup initiated in triage and by the time she came to the emergency room and I saw her all the workup is back and resulted. Patient did not appear to be in any distress. She has history of kidney stones and says that she has been hurting on the right side. Patient was seen in the emergency room about 3 months ago when she was diagnosed with a large left-sided ureteral calculus. Patient says that she has seen Dr. Hinton. She was supposed to get a procedure done but was unable to get it done because her blood pressure was high. She has to see him again this Tuesday. Patient is afebrile in the emergency room. [facility] Past Medical History Narrative Medical This of her past medical, surgical, social and family history is reviewed from the nursing note. Hx Anticoagulant Therapy: Yes (ASA) Asthma: No Autoimmune Disease: No Anxiety: Yes Depression: Yes Heart Rhythm Problems: No Cancer: No Cardiac Catheterization: No Cardiovascular Problems: Yes (HTN) High Cholesterol: No Chest Pain: Yes (SEEN SEVERAL TIMES FOR REOCCURING CHEST PAIN) Congestive Heart Failure: No COPD: Yes Cerebrovascular Accident: No Diabetes: No Diminished Hearing: No Endocrine: No Gastrointestinal Disorders: Yes GERD: Yes Genitourinary: Yes (KIDNEY STONES) Hepatitis: No Hiatal Hernia: No Heparin Induced Thrombocytopen: No Hypertension: Yes Immune Disorder: No Implanted Vascular Access Dvce: No Kidney Stones: Yes Musculoskeletal: Yes Neurologic: Yes Psychiatric: Yes Respiratory: Yes (COPD) Immunizations Current: Yes Sleep Apnea: Yes (no cpap) Thyroid Disease: No Ulcer: No Tubal Ligation: Yes Past Surgical History Abdominal Surgery: No AICD: No Body Medical Devices: oni, screws l lower leg Cardiac Surgery: No Coronary Artery Bypass Graft: No Ear Surgery: No Endocrine Surgery: No Eye Surgery: No Genitourinary Surgery: No Gynecologic Surgery: Yes (partial hysterectomy) Hysterectomy: Yes Joint Replacement: No Oral Surgery: No Pacemaker: No Thoracic Surgery: No Other Surgery: Yes (LITHOTRIPSY) Social History Alcohol Use: No Tobacco Use: Yes (15 cigs a day ) Substance Use: No Allergies-Medications (Allergen,Severity, Reaction): Coded Allergies: Sulfa (Sulfonamide Antibiotics) (Verified Allergy, Severe, SWELLING, HIVES , 06/20/17) Comments List of her allergies reviewed from the nursing note. Reported Meds & Prescriptions Reported Meds & Active Scripts Active Prednisone 20 Mg Tab 20 Mg PO BID 5 Days Macrobid (Nitrofurantoin Monoh/Nitrofur Macro) 100 Mg Cap 100 Mg PO BID 10 Days Lisinopril 10 Mg Tab 10 Mg PO DAILY Percocet (Oxycodone-Acetaminophen) 5-325 mg Tab 1-2 Tab PO Q6H PRN Tramadol (Tramadol HCl) 50 Mg Tab 50 Mg PO Q6H PRN Nitroglycerin SL (Nitroglycerin) 0.4 Mg Subl 0.4 Mg SL DIRECTED PRN ONE TABLET UNDER THE TONGUE NEEDED FOR CHEST PAIN, MAY REPEAT EVERY FIVE MINUTES FOR A TOTAL OF 3 DOSES OR CALL 911 IF NO RELIEF Ativan (Lorazepam) 0.5 Mg Tab 0.5 Mg PO BID PRN Reported Ibuprofen 800 Mg Tab 800 Mg PO Q6HR PRN Aspirin 81 Mg Chew 81 Mg CHEW DAILY Ventolin Hfa 18 GM Inh (Albuterol Sulfate) 90 Mcg/Act Aer 1 Puff INH Q4H PRN Narrative Medication List of her home medications reviewed from the nursing note. Review of Systems Except as stated in HPI: all other systems reviewed are Neg Respiratory: Positive: Cough, Shortness of Breath Physical Exam Narrative GENERAL: Awake, alert, no obvious distress, emaciated SKIN: Focused skin assessment warm/dry. HEAD: Atraumatic. Normocephalic. EYES: Pupils equal and round. No scleral icterus. No injection or drainage. ENT: No nasal bleeding or discharge. Mucous membranes pink and moist. NECK: Trachea midline. No JVD. CARDIOVASCULAR: Regular rate and rhythm. No murmur appreciated. RESPIRATORY: No accessory muscle use. Clear to auscultation. Breath sounds equal bilaterally. GASTROINTESTINAL: Abdomen soft, non-tender, nondistended. Hepatic and splenic margins not palpable. MUSCULOSKELETAL: No obvious deformities. No clubbing. No cyanosis. No edema. NEUROLOGICAL: Awake and alert. No obvious cranial nerve deficits. Motor grossly within normal limits. Normal speech. PSYCHIATRIC: Appropriate mood and affect; insight and judgment normal. Data Data Last Documented VS Vital Signs Date Time Temp Pulse Resp B/P (MAP) Pulse Ox O2 Delivery O2 Flow Rate FiO2 09/07/17 16:04 09/07/17 12:58 98.2 90 18 98 Room Air Orders Orders Complete Blood Count With Diff (09/07/17 13:16) Comprehensive Metabolic Panel (09/07/17 13:16) Prothrombin Time / Inr (Pt) (09/07/17 13:16) Act Partial Throm Time (Ptt) (09/07/17 13:16) Urinalysis - C+S If Indicated (09/07/17 13:16) Chest, Pa & Lat (09/07/17 ) Urine Culture (09/07/17 14:15) Prednisone (Deltasone) (09/07/17 16:00) Nitrofurantoin Monohyd Macrocr (Macrobid (09/07/17 16:00) Ed Discharge Order (09/07/17 15:56) Labs Laboratory Tests Test 09/07/17 14:15 White Blood Count 5.8 TH/MM3 Red Blood Count 4.42 MIL/MM3 Hemoglobin 12.1 GM/DL Hematocrit 37.5 % Mean Corpuscular Volume 84.7 FL Mean Corpuscular Hemoglobin 27.3 PG Mean Corpuscular Hemoglobin Concent 32.2 % Red Cell Distribution Width 13.3 % Platelet Count 161 TH/MM3 Mean Platelet Volume 8.7 FL Neutrophils (%) (Auto) 61.0 % Lymphocytes (%) (Auto) 31.5 % Monocytes (%) (Auto) 5.9 % Eosinophils (%) (Auto) 1.4 % Basophils (%) (Auto) 0.2 % Neutrophils # (Auto) 3.5 TH/MM3 Lymphocytes # (Auto) 1.8 TH/MM3 Monocytes # (Auto) 0.3 TH/MM3 Eosinophils # (Auto) 0.1 TH/MM3 Basophils # (Auto) 0.0 TH/MM3 CBC Comment DIFF FINAL Differential Comment Prothrombin Time 10.0 SEC Prothromb Time International Ratio 1.0 RATIO Activated Partial Thromboplast Time 26.5 SEC Urine Color YELLOW Urine Turbidity CLEAR Urine pH 6.5 Urine Specific [place] 1.020 Urine Protein 30 mg/dL Urine Glucose (UA) NEG mg/dL Urine Ketones NEG mg/dL Urine Occult Blood MOD Urine Nitrite NEG Urine Bilirubin NEG Urine Urobilinogen LESS THAN 2.0 MG/DL Urine Leukocyte Esterase SMALL Urine RBC /hpf Urine WBC 9 /hpf Urine Squamous Epithelial Cells 3 /hpf Urine Bacteria RARE /hpf Urine Mucus FEW /lpf Microscopic Urinalysis Comment CULTURE INDICATED Blood Urea Nitrogen 23 MG/DL Creatinine 0.84 MG/DL Random Glucose 107 MG/DL Total Protein 7.1 GM/DL Albumin 3.6 GM/DL Calcium Level 8.8 MG/DL Alkaline Phosphatase 74 U/L Aspartate Amino Transf (AST/SGOT) 18 U/L Alanine Aminotransferase (ALT/SGPT) 22 U/L Total Bilirubin 0.2 MG/DL Sodium Level 142 MEQ/L Potassium Level 4.2 MEQ/L Chloride Level 108 MEQ/L Carbon Dioxide Level 29.0 MEQ/L Anion Gap 5 MEQ/L Estimat Glomerular Filtration Rate 84 ML/MIN MDM Medical Decision Making Medical Screen Exam Complete: Yes Emergency Medical Condition: Yes Medical Record Reviewed: Yes Differential Diagnosis Acute COPD exacerbation, renal calculus, possible UTI Narrative Course 4:09 PM blood test results of back and within acceptable limits. UA suggestive of innumerable RBCs and possible UTI. Chest x-rays negative for any pneumonia. I've recommended the patient to follow-up with Dr. Hinton as per her appointment on Tuesday. She will get a dose of Macrobid and prednisone here and prescription to go home with. I spoke with her regarding smoking cessation as well. Procedures EKG Prior to Arrival: No Diagnosis Primary Impression: Acute exacerbation of chronic obstructive pulmonary disease (COPD) Additional Impressions: Possible urinary tract infection Needs smoking cessation education Referrals: Primary Care Physician Additional Instructions: Please return to the ER if condition worsens or any other new concerns. Otherwise take the medication as per the prescription direction. Please see your urologist as per the appointment you have with him. You need to quit smoking since it is really damaging her lungs. Med/Other Pt SpecificInfo: Prescription(s) given Scripts Prednisone (Prednisone) 20 Mg Tab 20 MG PO BID for 5 Days, #10 TAB 0 Refills Prov: Mavis Black MD 09/07/17 Nitrofurantoin Monohydrate Macrocrystals (Macrobid) 100 Mg Cap 100 MG PO BID for Infection for 10 Days, #20 CAP 0 Refills Prov: Mavis Black MD 09/07/17 Disposition: 01 DISCHARGE HOME Condition: Stable Mavis Black MD Sep 07, 2017 15:59
[2017-09-07] MEDS ORDERED: predniSONE 20 MG TAB PO ONE (16:00)
[2017-09-07] MEDS ORDERED: NITROFURANTOIN MONOHYD MACROCR 100 MG CAP PO ONE (16:00)
== END 2017-09-07 16:24 | disposition home or self-care (01) ==
LOC: NEPD 12:57
DX: J44.1 Chronic obstructive pulmonary disease with (acute) exacerbation (principal); F17.210 Nicotine dependence, cigarettes, uncomplicated; I10 Essential (primary) hypertension; K21.9 Gastro-esophageal reflux disease without esophagitis; R82.99 Other abnormal findings in urine
CPT/HCPCS: 71046; 80053; 81001; 85025; 85610; 85730; 87086; 99285; J7512

== ENCOUNTER 2017-10-27 18:47 | Emergency (ER) | payer SELFPAY ==
[~2017-10-27] VITALS: Ht 170.2 cm; Wt 44.5 kg
[~2017-10-27 18:47] MED LIST changes: +MACR100C2 PO; +PRED20 PO
[2017-10-27 19:41] VITALS: BP 136/90; PULSE 104; RESP 18; TEMP 98.8; O2SAT 98
[2017-10-27] MEDS ORDERED: SODIUM CHLOR 0.9% 1000 ML INJ 1,000 ML IV ONE (19:59)
[2017-10-27] MEDS ORDERED: ONDANSETRON HCL 4 MG/2 ML VIAL IV PUSH ONE (20:00)
[2017-10-27] MEDS ORDERED: SODIUM CHLORIDE 0.9% FLUSH 10 ML FLUSH IVF PRN (20:00)
[2017-10-27] MEDS ORDERED: KETOROLAC TROMETHAMINE 30 MG/ML (IVP) VIAL IV PUSH ONE (20:00)
--- NOTE | 2017-10-27 20:13 | PD ---
HPI Chief Complaint: Flank/Kidney Pain Time Seen by Provider: 19:50 Travel History International Travel<30 days: No Contact w/Intl Traveler<30days: No Traveled to known affect area: No History of Present Illness HPI 62 year old female presents to the emergency department for evaluation of right flank pain and right groin pain. Patient states she has been having pain from kidney stones for several months. She states she sees Dr. Hinton, urologist. She states she had lithotripsy scheduled on Tuesday. Patient states the pain worsened today in the right flank and right groin and she has hematuria now. Patient states she takes tramadol at home, but it makes her nauseated. Current pain is 9/10 without radiation. No exacerbating or alleviating factors. Moderate severity. Patient denies any fevers or chills. PFSH Past Medical History Hx Anticoagulant Therapy: Yes (ASA) Arthritis: Yes (not sure) Asthma: No Autoimmune Disease: No Anxiety: Yes Depression: Yes Heart Rhythm Problems: No Cancer: No Cardiac Catheterization: No Cardiovascular Problems: Yes (HTN) High Cholesterol: No Chest Pain: Yes (SEEN SEVERAL TIMES FOR REOCCURING CHEST PAIN) Congestive Heart Failure: No COPD: Yes Cerebrovascular Accident: No Diabetes: No Diminished Hearing: No Endocrine: No Gastrointestinal Disorders: Yes GERD: Yes Genitourinary: Yes (KIDNEY STONES) Hepatitis: No Hiatal Hernia: No Heparin Induced Thrombocytopen: No Hypertension: Yes Immune Disorder: No Implanted Vascular Access Dvce: No Kidney Stones: Yes Musculoskeletal: Yes Neurologic: Yes Psychiatric: Yes Respiratory: Yes (COPD, Bronchitis) Immunizations Current: Yes Sleep Apnea: Yes (no cpap) Thyroid Disease: No Ulcer: No Tetanus Vaccination: < 5 Years Influenza Vaccination: No Menopausal: Yes Tubal Ligation: Yes Past Surgical History Abdominal Surgery: No AICD: No Body Medical Devices: oni, screws l lower leg Cardiac Surgery: No Coronary Artery Bypass Graft: No Ear Surgery: No Endocrine Surgery: No Eye Surgery: No Genitourinary Surgery: No Gynecologic Surgery: Yes (partial hysterectomy) Hysterectomy: Yes (partial) Joint Replacement: No Oral Surgery: No Pacemaker: No Thoracic Surgery: No Other Surgery: Yes (LITHOTRIPSY) Social History Alcohol Use: No Tobacco Use: Yes (15 cigs a day ) Substance Use: No Allergies-Medications (Allergen,Severity, Reaction): Coded Allergies: Sulfa (Sulfonamide Antibiotics) (Verified Allergy, Severe, SWELLING, HIVES , 06/20/17) Reported Meds & Prescriptions Reported Meds & Active Scripts Active Prednisone 20 Mg Tab 20 Mg PO BID 5 Days Macrobid (Nitrofurantoin Monoh/Nitrofur Macro) 100 Mg Cap 100 Mg PO BID 10 Days Lisinopril 10 Mg Tab 10 Mg PO DAILY Tramadol (Tramadol HCl) 50 Mg Tab 50 Mg PO Q6H PRN Nitroglycerin SL (Nitroglycerin) 0.4 Mg Subl 0.4 Mg SL DIRECTED PRN ONE TABLET UNDER THE TONGUE NEEDED FOR CHEST PAIN, MAY REPEAT EVERY FIVE MINUTES FOR A TOTAL OF 3 DOSES OR CALL 911 IF NO RELIEF Ativan (Lorazepam) 0.5 Mg Tab 0.5 Mg PO BID PRN Reported Ibuprofen 800 Mg Tab 800 Mg PO Q6HR PRN Aspirin 81 Mg Chew 81 Mg CHEW DAILY Ventolin Hfa 18 GM Inh (Albuterol Sulfate) 90 Mcg/Act Aer 1 Puff INH Q4H PRN Review of Systems Except as stated in HPI: all other systems reviewed are Neg Physical Exam Narrative GENERAL: Well-nourished, well-developed female patient, ambulatory. Afebrile. SKIN: Focused skin assessment warm/dry. HEAD: Normocephalic. Atraumatic. EYES: No scleral icterus. No injection or drainage. NECK: Supple, trachea midline. No JVD or lymphadenopathy. CARDIOVASCULAR: Regular rate and rhythm without murmurs, gallops, or rubs. RESPIRATORY: Breath sounds equal bilaterally. No accessory muscle use. Lungs sounds are clear to auscultation. GASTROINTESTINAL: Abdomen soft, non-tender, nondistended. MUSCULOSKELETAL: No cyanosis, or edema. BACK: Nontender without obvious deformity. Right CVA tenderness. Data Data Last Documented VS Vital Signs Date Time Temp Pulse Resp B/P (MAP) Pulse Ox O2 Delivery O2 Flow Rate FiO2 10/27/17 19:51 20 10/27/17 19:41 98.8 104 136/90 (105) 98 Orders Orders Complete Blood Count With Diff (10/27/17 19:59) Comprehensive Metabolic Panel (10/27/17 19:59) Urinalysis - C+S If Indicated (10/27/17 19:59) Ct Abd/Pel W/O Iv Contrast (10/27/17 19:59) Ecg Monitoring (10/27/17 19:59) Iv Access Insert/Monitor (10/27/17 19:59) Ketorolac Inj (Toradol Inj) (10/27/17 20:00) Sodium Chloride 0.9% Flush (Ns Flush) (10/27/17 20:00) Sodium Chlor 0.9% 1000 Ml Inj (Ns 1000 M (10/27/17 19:59) Ondansetron Inj (Zofran Inj) (10/27/17 20:00) Urine Culture (10/27/17 20:15) Morphine Inj (Morphine Inj) (10/27/17 21:15) Nitrofurantoin Monohyd Macrocr (Macrobid (10/27/17 21:15) Tamsulosin (Flomax) (10/27/17 21:15) Labs Laboratory Tests Test 10/27/17 20:15 White Blood Count 10.5 TH/MM3 Red Blood Count 4.80 MIL/MM3 Hemoglobin 13.2 GM/DL Hematocrit 40.6 % Mean Corpuscular Volume 84.7 FL Mean Corpuscular Hemoglobin 27.5 PG Mean Corpuscular Hemoglobin Concent 32.5 % Red Cell Distribution Width 14.6 % Platelet Count 193 TH/MM3 Mean Platelet Volume 8.7 FL Neutrophils (%) (Auto) 73.7 % Lymphocytes (%) (Auto) 17.8 % Monocytes (%) (Auto) 6.9 % Eosinophils (%) (Auto) 1.1 % Basophils (%) (Auto) 0.5 % Neutrophils # (Auto) 7.8 TH/MM3 Lymphocytes # (Auto) 1.9 TH/MM3 Monocytes # (Auto) 0.7 TH/MM3 Eosinophils # (Auto) 0.1 TH/MM3 Basophils # (Auto) 0.1 TH/MM3 CBC Comment DIFF FINAL Differential Comment Urine Color RED Urine Turbidity CLOUDY Urine pH 6.5 Urine Specific [place] 1.018 Urine Protein 30 mg/dL Urine Glucose (UA) NEG mg/dL Urine Ketones NEG mg/dL Urine Occult Blood LARGE Urine Nitrite NEG Urine Bilirubin NEG Urine Urobilinogen LESS THAN 2.0 MG/DL Urine Leukocyte Esterase SMALL Urine RBC /hpf Urine WBC 11 /hpf Urine Squamous Epithelial Cells 1 /hpf Urine Bacteria OCC /hpf Urine Mucus FEW /lpf Microscopic Urinalysis Comment CULTURE INDICATED Blood Urea Nitrogen 24 MG/DL Creatinine 1.02 MG/DL Random Glucose 71 MG/DL Total Protein 7.6 GM/DL Albumin 3.7 GM/DL Calcium Level 9.4 MG/DL Alkaline Phosphatase 83 U/L Aspartate Amino Transf (AST/SGOT) 15 U/L Alanine Aminotransferase (ALT/SGPT) 20 U/L Total Bilirubin 0.2 MG/DL Sodium Level 141 MEQ/L Potassium Level 3.6 MEQ/L Chloride Level 102 MEQ/L Carbon Dioxide Level 30.2 MEQ/L Anion Gap 9 MEQ/L Estimat Glomerular Filtration Rate 67 ML/MIN [facility] Medical Decision Making Medical Screen Exam Complete: Yes Emergency Medical Condition: Yes Medical Record Reviewed: Yes Interpretation(s) Last Impressions Abdomen/Pelvis CT 10/27/171958 Signed Impressions: Service Date/Time: , October 27, 2017 20:36 - CONCLUSION: 1. 11 x 8 mm calcified obstructing right proximal ureteral calculus resulting in mild hydronephrosis on the right which is new compared to previous examination. 2. Chronic obstructing left distal ureteral calcified 8 x 8 mm calculus resulting in moderate to severe left ureteropelvicatelectasis which is unchanged compared to April 2017. 3. Multiple calcified nonobstructing bilateral renal calculi. 4. Multiple bilateral renal cysts and hepatic cysts. 5. Degenerative changes and scoliosis of lumbar spine. Pierce Paulino MD Differential Diagnosis nephrolithiasis versus hydronephrosis versus UTI Narrative Course 62-year-old female presents to the emergency department for evaluation right flank pain, right groin pain with hematuria. She has history nephrolithiasis as lithotripsy scheduled on Tuesday. CBC, CMP, UA are ordered and pending. CT abdomen/pelvis without contrast is ordered and pending. Patient is given Toradol 30 mg IV, Zofran 4 mg IV, normal saline 1 L IV bolus. CBC shows no acute abnormality. CMP shows BUN 24, creatinine 1.02. UA shows large occult blood, small leukocyte esterase, 11 WBC, occasional bacteria. CT abdomen/pelvis shows 11 x 8 mm calcified obstructing right proximal ureteral calculus resulting in mild hydronephrosis on the right which is new compared to previous examination; Chronic obstructing left distal ureteral calcified 8 x 8 mm calculus resulting in moderate to severe left ureteropelvicatelectasis which is unchanged compared to April 2017; Multiple calcified nonobstructing bilateral renal calculi; Multiple bilateral renal cysts and hepatic cysts; Degenerative changes and scoliosis of lumbar spine. I talked to Dr. Hinton regarding patient. I relayed CT results to him. He states patient is okay to be discharged and follow up with him on Tuesday as scheduled. I discussed this with the patient who agrees to this. She'll be discharged prescription for [place] for pain, Zofran, Flomax, Macrobid. The patient was discharged in stable condition with instructions, including return instructions and follow up instructions. Diagnosis Primary Impression: Bilateral nephrolithiasis Additional Impression: Urinary tract infection Qualified Codes: N30.01 - Acute cystitis with hematuria Referrals: Terry Hinton MD Patient Instructions: General Instructions, Kidney Stones (ED) Additional Instructions: Take Macrobid as directed until gone. Take [place] as instructed as needed for pain. Caution this can make you drowsy so do not drive after taking. Take Zofran as directed as needed for nausea/vomiting. Take Flomax as directed. Follow-up with Dr. Hinton on Tuesday as scheduled. Return to the emergency department for any acute worsening of symptoms. Med/Other Pt SpecificInfo: Prescription(s) given Scripts Hydrocodone-Acetaminophen ([place]) 5 Mg-325 Mg Tab 1 TAB PO Q6H Y for PAIN, #16 TAB 0 Refills Prov: Josie Odonnell 10/27/17 Nitrofurantoin Monohydrate Macrocrystals (Macrobid) 100 Mg Capsule 100 MG PO BID for Infection for 7 Days, #14 CAP 0 Refills Prov: Josie Odonnell 10/27/17 Tamsulosin (Flomax) 0.4 Mg Cap 0.4 MG PO HS, #7 CAP 0 Refills Prov: Josie Odonnell 10/27/17 Ondansetron Odt (Ondansetron Odt) 4 Mg Tab 4 MG SL Q6HR Y for Nausea/Vomiting, #16 TAB 0 Refills Prov: Josie Odonnell 10/27/17 Disposition: 01 DISCHARGE HOME Condition: Stable Josie Odonnell Oct 27, 2017 20:13
[2017-10-27 20:38] LABS: AUTOMATED NEUTROPHIL # 7.8 TH/MM3 (1.8-7.7); BASOPHIL # 0.1 TH/MM3 (0-0.2); BASOPHIL % 0.5 % (0.0-2.0); EOSINOPHIL # 0.1 TH/MM3 (0-0.4); EOSINOPHIL % 1.1 % (0.0-4.0); HEMATOCRIT 40.6 % (35.0-46.0); HEMOGLOBIN 13.2 GM/DL (11.6-15.3); LYMPH % 17.8 % (9.0-44.0); LYMPHOCYTE # 1.9 TH/MM3 (1.0-4.8); MEAN CELL VOLUME 84.7 FL (80.0-100.0); MEAN CORPUSCULAR HEMOGLOBIN 27.5 PG (27.0-34.0); MEAN CORPUSCULAR HGB CONC 32.5 % (32.0-36.0); MEAN PLATELET VOLUME 8.7 FL (7.0-11.0); MONO % 6.9 % (0.0-8.0); MONOCYTE # 0.7 TH/MM3 (0-0.9); NEUT % 73.7 % (16.0-70.0); PLATELET COUNT 193 TH/MM3 (150-450); RED CELL DISTRIBUTION WIDTH 14.6 % (11.6-17.2); WHITE BLOOD COUNT 10.5 TH/MM3 (4.0-11.0)
[2017-10-27 20:45] LABS: BACTERIA, URINE OCC /hpf; BILIRUBIN, URINE NEG (NEG); BLOOD, URINE LARGE (NEG); GLUCOSE,URINE NEG (NEG); KETONE, URINE NEG (NEG); MUCUS URINE FEW /lpf (OCC); NITRITE,URINE NEG (NEG); PH, URINE 6.5 (5.0-8.5); SQUAMOUS EPITHELIAL CELL URINE 1 /hpf (0-5); URINE COLOR RED (YELLW/STRAW); URINE LEUKOCYTE ESTERASE SMALL (NEG)
[2017-10-27 20:59] LABS: ALBUMIN 3.7 GM/DL (3.4-5.0); ALT (GPT) 20 U/L (10-53); AST (GOT) 15 U/L (15-37); BICARBONATE 30.2 MEQ/L (21.0-32.0); BLOOD UREA NITROGEN 24 MG/DL (7-18); CALCIUM 9.4 MG/DL (8.5-10.1); CHLORIDE 102 MEQ/L (98-107); CREATININE 1.02 MG/DL (0.50-1.00); GLOMERULAR FILTRATION RATE 67 ML/MIN (>89); GLUCOSE,RANDOM 71 MG/DL (74-106); SODIUM (NA) 141 MEQ/L (136-145)
--- NOTE | 2017-10-27 20:59 | RADRPT ---
EXAM DATE/TIME: 10/27/2017 20:36 [facility] COMPARISON: CT ABDOMEN & PELVIS W/O CONTRAST, May 09, 2017, 22:41. INDICATIONS : Abdominal pain, hematuria, and groin pain. ORAL CONTRAST: No oral contrast ingested. RADIATION DOSE: 12.64 CTDIvol (mGy) MEDICAL HISTORY : Renal calculi. Chronic obstructive pulmonary disease. Hypertension. SURGICAL HISTORY : Hysterectomy. Tubal ligation. ENCOUNTER: Initial ACUITY: 2 weeks PAIN SCALE: 9/10 LOCATION: Right flank TECHNIQUE: Volumetric scanning of the abdomen and pelvis was performed. Using automated exposure control and ad justment of the mA and/or kV according to patient size, radiation dose was kept as low as reasonably achievable to obtain optimal diagnostic quality images. DICOM format image data is available electro nically for review and comparison. FINDINGS: There is evidence an 11 x 8 mm calcified right proximal ureteral calculus resulting in mild hydroneph rosis on the right which is new compared to previous examination. There is also an 8 x 8 mm calcified left distal ureteral obstructing calculus which is unchanged compared to the previous examination in April 2017 and results in moderate to severe ureteropelvicatelectasis on the left. Multiple calc ified bilateral renal calculi are again noted also. Multiple bilateral renal cysts are stable. Scatte red low density lesions within the liver parenchyma are also again noted and stable consistent with p robable hepatic cysts. Degenerative changes and scoliosis of the lumbar spine are noted. CONCLUSION: 1. 11 x 8 mm calcified obstructing right proximal ureteral calculus resulting in mild hydronephrosis on the right which is new compared to previous examination. 2. Chronic obstructing left distal ureteral calcified 8 x 8 mm calculus resulting in moderate to lamar re left ureteropelvicatelectasis which is unchanged compared to April 2017. 3. Multiple calcified nonobstructing bilateral renal calculi. 4. Multiple bilateral renal cysts and hepatic cysts. 5. Degenerative changes and scoliosis of lumbar spine. Pierce Paulino MD on October 27, 2017 at 20:52 Board Certified Radiologist. This report was verified electronically.
[2017-10-27 21:02] LABS: ALKALINE PHOSPHATASE 83 U/L (45-117); TOTAL BILIRUBIN ADULT 0.2 MG/DL (0.2-1.0); TOTAL PROTEIN 7.6 GM/DL (6.4-8.2)
[2017-10-27] MEDS ORDERED: NITROFURANTOIN MONOHYD MACROCR 100 MG CAP PO ONE (21:15)
[2017-10-27] MEDS ORDERED: MORPHINE SULFATE 4 MG/ML INJ IV PUSH ONE (21:15)
[2017-10-27] MEDS ORDERED: TAMSULOSIN HCL 0.4 MG CAP PO ONE (21:15)
[2017-10-27] MEDS ORDERED: TAMS5CAP PO (21:50)
[2017-10-27] MEDS ORDERED: ONDA4TAB7 SL (21:50)
[2017-10-27] MEDS ORDERED: MACR100C2 PO (21:50)
[2017-10-27] MEDS ORDERED: NORC5TAB PO ×2 (21:50→21:52)
[2017-10-31] MEDS ORDERED: CEPH-459 PO (15:36)
[2017-10-31] MEDS ORDERED: PERC5TAB12 PO (15:36)
== END 2017-10-27 22:09 | disposition home or self-care (01) ==
LOC: NEPC 18:47
DX: N13.2 Hydronephrosis with renal and ureteral calculous obstruction (principal); N30.01 Acute cystitis with hematuria; I10 Essential (primary) hypertension; J44.9 Chronic obstructive pulmonary disease, unspecified; F17.210 Nicotine dependence, cigarettes, uncomplicated
CPT/HCPCS: 74176; 80053; 81001; 85025; 87086; 96361; 96374; 96375; 99284; J1885; J2270; J2405; J7030

== ENCOUNTER → 2017-10-31 | Day surgery (SDC) | payer SELFPAY ==
[~2017-10-31] VITALS: Ht 170.2 cm; Wt 43.7 kg
[~2017-10-31] MED LIST changes: +*MEPERIDINE 25 MG INJ VIAL PERIprocedural Use ONLY ONE; +*PROMETHAZINE 25 MG/ML VIAL PERIprocedural use ONLY ONE; +*morphine SULFATE 4 MG/ML PERIprocedure ONLY ONE; +CEPH-459 PO; +CHLORHEXIDINE GLUCONATE 2 % 1 PACK (2 CLOTHS) TOPICAL PRN; +DEXAMETHASONE SOD PHOS 4 MG/ML VIAL IV ONE; +DO NOT ADM ANY ANTICOAGULANT DRUGS PRN; +GLYCOPYRROLATE 1 MG/5 ML SYRINGE IV PUSH ONE; +LACTATED RINGER'S 1000 ML IV PRN; +LIDOCAINE HCL 1% PF 5 ML SYRINGE OTHER ONE; +METOPROLOL TARTRATE 25 MG TAB PO PRN; +MIDAZOLAM HCL 2 MG/2 ML VIAL ONE; +NEOSTIGMINE 5 MG/5 ML SYRINGE IV PUSH ONE; +NORC5TAB PO; +ONDA4TAB7 SL; +ONDANSETRON HCL 4 MG/2 ML VIAL IV PUSH PRN; +PHENYLEPH/NS 1000 MCG/10 ML SYR IV ONE; +POVIDONE IODINE 5% (ANTISEPSIS KIT) 4 APPLICATIONS EACH NARE PRN; +PROPOFOL 200 MG/20 ML AMP IV ONE; +ROCURONIUM INJ 50 MG/5 ML SYRINGE IV PUSH ONE; +SODIUM CHLORID 0.9% 500 ML IV PRN; +TAMS5CAP PO; +ceFAZolin 1,000 MG/NS 100 ML IV SCH; +ePHEDrine/NS 25 MG/5 ML SYRINGE IV ONE; +hydrALAZINE HCL 20 MG/ML VIAL IV ONE; +oxyCODONE/ACETAMINOPHEN 5 MG/325 MG TAB PO PRN
--- NOTE | 2017-10-31 15:31 | PD.OP ---
Operative Report Date of Surgery: Oct 31, 2017 Preoperative Diagnosis: (1) Neurogenic bladder Postoperative Diagnosis: (1) Neurogenic bladder Procedure: Cystoscopy, bilateral retrograde pyelogram studies, right ureteral stent placement, balloon dilation left distal ureteral stricture, left ureteroscopy with laser lithotripsy and left ureteral stent placement Anesthesia: General Surgeon: Terry Hinton Brine Process Operator(s): None Operation and Findings: Indication for procedures: Case of a pleasant 8-year-old female with an approximately 1 cm obstructing right ureteropelvic junction calculus and a 8 mm left distal obstructing ureteral calculus who presents today for further urologic management. Urologic procedures in detail: Patient was brought to the operating room suite placed supine on the cystoscopy table. She was then placed under general anesthesia. She was then repositioned in the dorsal lithotomy position and prepped and draped in normal sterile fashion. After appropriate timeout was undertaken I proceeded with cystoscopic evaluation utilizing the rigid cystoscope with the 20 Vietnamese sheath and 30 lens. Both right and left ureteral orifices were in correct anatomic position. There was sluggish drainage of urine from the right ureteral orifice and no drainage noted on the left. I then proceeded with utilizing a 6 Vietnamese open-ended ureteral catheter and performed a right retrograde pyelogram study. The patient was noted to have multiple nonobstructing right renal stones as well as a obstructing ureteropelvic junction calculus. I then proceeded with placing a optimal long- term 6 Vietnamese 24 cm double-J stent on the both cystoscopic and fluoroscopic guidance without difficulty. Once the stent was in proper position the trailing string was removed. I then focused my attention on the patient's left side. A sensor 0.035 wire was able to be negotiated around the left distal stone and further advanced up into the left renal pelvis. The cystoscope was withdrawn and the wire secured to a sterile drape with a hemostat. The self dilating ureteroscope was then utilized and a second wire of the same size was passed through the lumen of the ureteroscope to facilitate scope passage. I was able to reach the obstructing stone however the patient was noted to have a circumferential stricture just distal to the stone. I then removed the ureteroscope and reintroduced the cystoscope. I advanced a UroMax 4 cm 18 Vietnamese balloon dilatation catheter through the scope and dilated the distal left ureteral stricture on the both cystoscopic and fluoroscopic guidance. After the stricture was dilated the balloon catheter was removed and the cystoscope was once again exchanged for the self dilating ureteroscope I was then able to advance the ureteroscope up to the stone the stone appeared to be eroding through the wall of the ureter. I then used the holmium laser with the 200 m fiber and proceeded with laser lithotripsy of the stone. Once the stone was broken up I exchanged ureteroscope for the cystoscope and subsequently performed a left retrograde pyelogram. There was prompt filling and drainage of the left collecting system. The left kidney was noted to be markedly hydronephrotic. A 6 Vietnamese 24 cm optical long-term stent was then placed under both cystoscopic and fluoroscopic guidance without difficulty and once the stent was in proper position the trailing string was removed. The guidewire cystoscope was then withdrawn and a 16 Vietnamese 10 cc Alcantar catheter was placed and connected to gravity drainage. The patient tolerated the procedures without complications and was transferred to the PACU in satisfactory condition. Terry Hinton MD Oct 31, 2017 15:31
[2017-10-31 18:04] VITALS: BP 155/91; PULSE 72; RESP 18; TEMP 97.3; O2SAT 95
== END | disposition home or self-care (01) ==
LOC: HSDC 09:32
PROVIDERS: ATTEND Urology
DX: N20.2 Calculus of kidney with calculus of ureter (principal); N13.5 Crossing vessel and stricture of ureter without hydronephrosis; N31.9 Neuromuscular dysfunction of bladder, unspecified; I10 Essential (primary) hypertension
CPT/HCPCS: 00910; 52341; 52356; 74420; C1726; C1769; J0360; J0690; J1100; J2175; J2250; J2270; J2370; J2550; J2710; J3010; J7120

== ENCOUNTER → 2017-12-07 | Day surgery (SDC) | payer SELFPAY ==
[~2017-12-07] VITALS: Ht 170.2 cm; Wt 44.2 kg
[~2017-12-07] MED LIST changes: -*MEPERIDINE 25 MG INJ VIAL PERIprocedural Use ONLY ONE; -*PROMETHAZINE 25 MG/ML VIAL PERIprocedural use ONLY ONE; -*morphine SULFATE 4 MG/ML PERIprocedure ONLY ONE; +ALBU0.08 NEB; +AMLO5TAB2 PO; +BUPR100CR PO; -CEPH-459 PO; +CYCL5TAB PO; -DEXAMETHASONE SOD PHOS 4 MG/ML VIAL IV ONE; -GLYCOPYRROLATE 1 MG/5 ML SYRINGE IV PUSH ONE; +INSULIN HUMAN REGULAR 1,000 UNITS/10 ML VIAL SQ PRN; +LABETALOL HCL 100 MG/20 ML VIAL IV ONE; -MACR100C2 PO; +MEGE40TA PO; -MIDAZOLAM HCL 2 MG/2 ML VIAL ONE; -NEOSTIGMINE 5 MG/5 ML SYRINGE IV PUSH ONE; +ONDANSETRON HCL 4 MG/2 ML VIAL IV ONE; -PRED20 PO; -ROCURONIUM INJ 50 MG/5 ML SYRINGE IV PUSH ONE; -TAMS5CAP PO; -ceFAZolin 1,000 MG/NS 100 ML IV SCH; -hydrALAZINE HCL 20 MG/ML VIAL IV ONE
[2017-12-07 10:37] LABS: AUTOMATED NEUTROPHIL # 6.1 TH/MM3 (1.8-7.7); BASOPHIL % 0.1 % (0.0-2.0); EOSINOPHIL # 0.1 TH/MM3 (0-0.4); EOSINOPHIL % 1.9 % (0.0-4.0); HEMATOCRIT 38.8 % (35.0-46.0); HEMOGLOBIN 12.5 GM/DL (11.6-15.3); LYMPH % 16.9 % (9.0-44.0); LYMPHOCYTE # 1.4 TH/MM3 (1.0-4.8); MEAN CELL VOLUME 84.5 FL (80.0-100.0); MEAN CORPUSCULAR HEMOGLOBIN 27.1 PG (27.0-34.0); MEAN CORPUSCULAR HGB CONC 32.1 % (32.0-36.0); MEAN PLATELET VOLUME 9.2 FL (7.0-11.0); MONO % 5.4 % (0.0-8.0); MONOCYTE # 0.4 TH/MM3 (0-0.9); NEUT % 75.7 % (16.0-70.0); PLATELET COUNT 153 TH/MM3 (150-450); RED BLOOD COUNT 4.59 MIL/MM3 (4.00-5.30); RED CELL DISTRIBUTION WIDTH 15.3 % (11.6-17.2); WHITE BLOOD COUNT 8.1 TH/MM3 (4.0-11.0)
--- NOTE | 2017-12-07 11:13 | RADRPT ---
EXAM DATE/TIME: 12/07/2017 11:03 [facility] COMPARISON: CT ABDOMEN & PELVIS W/O CONTRAST, October 27, 2017, 20:36. INDICATIONS : Pre-op for right lithotripsy. MEDICAL HISTORY : Hypertension. Chronic obstructive pulmonary disease. SURGICAL HISTORY : Hysterectomy. Bilateral ureteral stent placement. ENCOUNTER: Initial ACUITY: 1 day PAIN SCORE: 0/10 LOCATION: Abdomen. FINDINGS: Supine view of the abdomen was performed. Heart double-J bilateral ureteral stents in place. There ar e 3 separate calcified opacities overlying the inferior pole of the right kidney measuring 4-6 mm. Th ere is a an 11 mm calcified opacity corresponding to the proximal right ureter. There is a 6 mm calci fied opacity corresponding to the distal left ureter near the UVJ. Additional smaller calcified densi ties in the deep pelvis appear to correspond to phleboliths noted on CT scan. There were no dilated l oops of bowel with air noted in the colon. No free air or pneumatosis. Osseous structures are intact. CONCLUSION: 1. Double-J ureteral stents in place with 3 calcified renal calculi in the inferior pole of the right kidney and bilateral ureteral calculi, as above. Sergo Santamaria MD on December 07, 2017 at 11:06 Board Certified Radiologist. This report was verified electronically.
--- NOTE | 2017-12-07 12:58 | PD.OP ---
Operative Report Date of Surgery: Dec 07, 2017 Preoperative Diagnosis: (1) Ureteral stricture, left (2) Ureteral calculus, right Postoperative Diagnosis: (1) Ureteral calculus, right (2) Ureteral stricture, left Procedure: Cystoscopy, left ureteral stent removal and extracorporeal shockwave lithotripsy right proximal ureteral calculus Anesthesia: General Surgeon: Terry Hinton Delivery Stock Clerk(s): None Operation and Findings: Indication for procedures: Case of a pleasant 62-year-old female with history of an obstructing right proximal ureteral calculus as well as a left distal ureteral stricture formation status post bilateral stents who presents today for cystoscopy, removal of left stent and extrapleural shockwave lithotripsy of the right proximal ureteral calculus. Operative procedure in detail: Patient was brought to the operating room suite and placed supine on the OR table. She was then placed under general anesthesia. She was then repositioned in the dorsolithotomy position and prepped and draped in normal sterile fashion. After an appropriate timeout was undertaken, I proceeded with cystoscopic evaluation utilizing the rigid cystoscope with the 20 Yi sheath and 30 lens. The distal loops of the bilateral ureteral stents could be seen protruding from each respective ureteral orifice. I then proceeded with grasping the left stent with flexible forceps and gently removed it. The stent was carefully inspected to ascertain that no residual stent fragments were left behind. The patient was then repositioned in the supine position and subsequently underwent shockwave lithotripsy of the right proximal ureteral calculus. The stone was localized with fluoroscopy and subsequently treated with the Dornier mobile lithotripsy device. The patient received a total of 3000 shocks with a maximum power level setting of 6. At conclusion of the procedure the stone was spread out considerably consistent with fragmentation. The patient tolerated the procedures without complications and was transferred to the PACU in satisfactory condition. Terry Hinton MD Dec 07, 2017 12:58
[2017-12-07 14:20] VITALS: BP 151/91; PULSE 59; RESP 20; TEMP 97.5; O2SAT 98
== END | disposition home or self-care (01) ==
LOC: HSDC 09:07
PROVIDERS: ATTEND Urology
DX: N20.2 Calculus of kidney with calculus of ureter (principal); N13.5 Crossing vessel and stricture of ureter without hydronephrosis; N30.01 Acute cystitis with hematuria; Z01.818 Encounter for other preprocedural examination
CPT/HCPCS: 00910; 50590; 52310; 74018; 85025; J2370; J2405; J3010; J7120

== ENCOUNTER → 2017-12-26 | Outpatient (CLI) | payer SELFPAY ==
[~2017-12-26] MED LIST changes: -CHLORHEXIDINE GLUCONATE 2 % 1 PACK (2 CLOTHS) TOPICAL PRN; -DO NOT ADM ANY ANTICOAGULANT DRUGS PRN; -INSULIN HUMAN REGULAR 1,000 UNITS/10 ML VIAL SQ PRN; -LABETALOL HCL 100 MG/20 ML VIAL IV ONE; -LACTATED RINGER'S 1000 ML IV PRN; -LIDOCAINE HCL 1% PF 5 ML SYRINGE OTHER ONE; -METOPROLOL TARTRATE 25 MG TAB PO PRN; -ONDA4TAB7 SL; -ONDANSETRON HCL 4 MG/2 ML VIAL IV ONE; -ONDANSETRON HCL 4 MG/2 ML VIAL IV PUSH PRN; -PHENYLEPH/NS 1000 MCG/10 ML SYR IV ONE; -POVIDONE IODINE 5% (ANTISEPSIS KIT) 4 APPLICATIONS EACH NARE PRN; -PROPOFOL 200 MG/20 ML AMP IV ONE; -SODIUM CHLORID 0.9% 500 ML IV PRN; -ePHEDrine/NS 25 MG/5 ML SYRINGE IV ONE; -oxyCODONE/ACETAMINOPHEN 5 MG/325 MG TAB PO PRN
--- NOTE | 2017-12-26 16:20 | RADRPT ---
EXAM DATE/TIME: 12/26/2017 15:23 [facility] COMPARISON: ABDOMEN KUB ONLY, December 07, 2017, 11:03. INDICATIONS : Pain right flank, evaluate for renal stones MEDICAL HISTORY : Renal calculi. SURGICAL HISTORY : nephrolithotomy x 2, hx of bilateral renal stones, ureteral stent ENCOUNTER: Initial ACUITY: 1 day PAIN SCORE: 6/10 LOCATION: Right abdomen FINDINGS: Right sided double-J catheter in place. There are multiple calcifications project over the lower laura e of the right kidney, some of which demonstrate fragmentation and are larger when compared to 8. The larger groupings of fragmentation measure 9 mm and 9 mm in size. There are also 2 new calcif ications seen in the right pelvis adjacent to the distal portion of the stent. These 2 calcification s are rounded and measure 4 mm and 2 mm respectively. Interval removal of left double-J stent. There is a residual 2 mm calcification project over the low er pole left kidney. Multiple calcifications in the left hemipelvis are similar to prior exam. No d ilated loops of small or large bowel. Metallic clip in the right lateral pelvis. The visualized low er lungs are clear. CONCLUSION: Changed appearance of multiple calcifications on the right side. The largest calcification project o juan the proximal right ureter is no longer discernible, but there are 2 rounded calcifications along the distal stent measuring 4 mm and 2 mm which are new findings. There also increased size fragmente d calcifications lower pole collecting system. Sabino Khan MD on December 26, 2017 at 16:16 Board Certified Radiologist. This report was verified electronically.
== END ==
LOC: HRAD 14:56
PROVIDERS: ATTEND Urology
DX: N20.0 Calculus of kidney (principal)
CPT/HCPCS: 74018